=== PATIENT | female | born 1945 | race Caucasian/White ===

== ENCOUNTER 2021-05-04 09:58 | Observation (INO) | payer OTHER ==
[~2021-05-04] VITALS: Ht 160 cm; Wt 80.1 kg
[~2021-05-04 09:58] MED LIST: CELE200 PO; DOXE10; GLIP10 PO; HYDACE5 PO; LEVSOD150; NAPR550 PO; SITA100T2 PO; VERA240ER PO; VERA240ERA
--- NOTE | 2021-05-04 11:23 | NUR ---
Ambulatory in Day Surgery WITH CANE. History, Chart, Medications and Allergies reviewed before start of procedure. Lungs clear T/O to Auscultation. Patient confirms NPO status and agrees with scheduled surgery. Pre-Op teaching done. Pt verbalizes understanding.
--- NOTE | 2021-05-04 12:10 | NUR ---
REPORT RECENTLY GIVEN TO OTHER GALDINO Villafuerte.
--- NOTE | 2021-05-04 15:50 | NUR ---
PATEINMadi TEARFUL, REPORTS CONCERNS RELATED TO SPINAL, THAT SHE CANT FEEL RIGHT LEG. CONCERN THAT HER LEFT SHOULDER PAIN IS DUE TO SPINAL. REASSURED PATIENT THAT SPINAL APPEARS TO BE WEARING OFF. PATINET ABLE TO WIGGLE TOES BILATERALLY AND REPORTS SENSATION MID THIGH. PATIENT REPORTS NO REFEIF TO SHOULDER PAIN DESPITE FENT OR TORADOL. AXIOUS, REPATEDLY REPORTING CONCERNS RELATED TO SPINAL. CALLED AND DISCUSSED WITH DR. Rossi. ORDERS FOR LORAZEPAM RECEIVED AND 0.5MG IV GIVEN.
--- NOTE | 2021-05-04 19:10 | NUR ---
SHIFT SUMMARY PT ARRIVED TO ROOM AROUND 1630. ALERT, ORIENTED, PLEASANT. C/O L SHOULDER PAIN. ICE PACK & REPOSITIONING HELPED. SPINAL BEGINNING TO WEAR OFF & PAIN INCREASED BUT IS NOW CONTROLLED. EATING, DRINKING, & VOIDING.
[2021-05-05 03:58] LABS: BASOPHILS ABSOLUTE AUTO 0.04 K/mm3 (0.00-0.23); BASOPHILS PERCENT AUTO 0 % (0-2); EOSINOPHILS ABSOLUTE AUTO 0.04 K/mm3 (0.00-0.68); EOSINOPHILS PERCENT AUTO 0 % (0-6); Hematocrit 36.5 % (33.0-51.0); Hemoglobin 12.3 g/dL (11.5-16.0); IMMATURE GRAN ABSOLUTE AUTO 0.09 K/mm3 (0.00-0.10); IMMATURE GRAN PERCENT AUTO 1 % (0-1); LYMPHOCYTES ABSOLUTE AUTO 1.76 K/mm3 (0.84-5.20); LYMPHOCYTES PERCENT AUTO 12 % (21-46); MONOCYTES ABSOLUTE AUTO 1.76 K/mm3 (0.16-1.47); MONOCYTES PERCENT AUTO 12 % (4-13); Mean Corpuscular HGB 31.9 pg (26.0-34.0); Mean Corpuscular HGB Conc 33.7 g/dL (31.5-36.5); Mean Corpuscular Volume 95 fL (80-100); Mean Platelet Volume 9.9 fL (9.1-12.4); NEUTROPHILS PERCENT AUTO 75 % (41-73); Platelet Count 285 K/mm3 (150-400); RDW Coefficient Variation 12.1 % (11.7-14.2); Red Blood Cell Count 3.85 M/mm3 (3.80-5.20); White Blood Cell Count 15.09 K/mm3 (4.00-11.30)
--- NOTE | 2021-05-05 03:58 | NUR ---
SHIFT SUMMARY POD1 LEFT TKA. PRINEO DERMABOND DRESSING TO KNEE REMAINS CDI. POLAR PACK IN PLACE. TORADOL/TYLENOL/ROXICODONE FOR PAIN MANAGEMENT. PT NEEDS ENCOURAGEMENT AND REASSURANCE WITH MOBILITY. PT UP TO RESTROOM WITH 1 SBA USING GB + WALKER. WBAT. USES CALL LIGHT APPROPRIATELY.
[2021-05-05 04:16] LABS: Anion Gap 6 mmol/L (6-16); Blood Urea Nitrogen 13 mg/dL (8-24); Bun/Creatinine Ratio 20.1 (12.0-20.0); CO2, Blood 29 mmol/L (21-32); Calcium, Blood 8.3 mg/dL (8.5-10.1); Chloride, Blood 102 mmol/L (98-108); Creatinine, Blood 0.65 mg/dL (0.40-1.00); Glomerular Filtration Rate >60 (60-); Glucose, Blood 166 mg/dL (70-99); Magnesium, Blood 1.6 mg/dL (1.6-2.4); Potassium, Blood 3.6 mmol/L (3.5-5.5); Sodium, Blood 137 mmol/L (136-145)
--- NOTE | 2021-05-05 08:24 | NUR ---
A&OX4, OOB TO CHAIR, C/O NAUSEA AND DRY HEAVING, ZOFRAN GIVEN, C/O PAIN ON L KNEE, 1 OXYCODONE GIVEN, DENIES ANY NUMBNESS OR TINGLING, CONT. TO MONITOR FOR ANY CHANGES.
--- NOTE | 2021-05-05 10:16 | NUR ---
Pt. is awak and alert sittingup in a recliner chair. Pt. is unsettled that she is experiencing side affects from her knee relacement sugery. Daughter in present. Listen empathetically. Explore personal julien and belief. Establish rapport. Pt. displays evidence of reduced stress. Prayed with Pt. Pt. and daughter both verbalize gratitude for their spiritual care visit.
--- NOTE | 2021-05-05 13:44 | NUR ---
05/05/21 1344 Deepti Granda VERIFICATIONS: EDIT CHART.
--- NOTE | 2021-05-05 17:00 | NUR ---
SUMMARY PT WAS NAUSEOUS AND DIZZY THIS AM, REPORTS NAUSEA IS BETTER BUT MOSTLY DIZZY, PAIN MEDS SWITCHED TO NORCO, REPORTS PAIN IS "BETTER" UNABLE TO WORK MUCH WITH PHYS TX TODAY, AND CBG'S HAS BEEN IN THE 200'S, HOSPITALIST CONSULT DONE, TOLERATES AMBULATING TO THE BATHROOM FAIRLY WELL WITH ASISST, L KNEE INCISION C/D/I, TOLERATING REGULAR/ADA DIET WELL, NO OTHER CHANGES THIS SHIFT.
--- NOTE | 2021-05-06 05:30 | NUR ---
76 year old Female postop day 2 for lt total knee replacement continues on scheduled toradol & tylenol & has intermittant pain 09/30 after ectivity. Hesitant to take roxicodone 5 mg but took norco 5/325 mg tab x 1 with helpful effect. Dizziness & nausea reported by PT improved. Snack offered with norco 5/325 mg tab. Up with FWW to bathroom.
[2021-05-06] MEDS ORDERED: ASPI81CH PO (12:37)
[2021-05-06] MEDS ORDERED: ACET500 PO (12:37)
[2021-05-06] MEDS ORDERED: SULTRIDS PO (12:38)
[2021-05-06] MEDS ORDERED: Percocet 5-3251 EACH PO (12:38)
--- NOTE | 2021-05-06 15:24 | NUR ---
L LEG SWOLLEN COMPARED TO THE RIGHT, HOT TO THE TOUCH, AND RED. DR. FOLEY NOTIFIED.
[2021-05-06 15:36] LABS: BASOPHILS ABSOLUTE AUTO 0.05 K/mm3 (0.00-0.23); BASOPHILS PERCENT AUTO 0 % (0-2); EOSINOPHILS ABSOLUTE AUTO 0.18 K/mm3 (0.00-0.68); EOSINOPHILS PERCENT AUTO 1 % (0-6); Hematocrit 34.7 % (33.0-51.0); Hemoglobin 11.7 g/dL (11.5-16.0); IMMATURE GRAN ABSOLUTE AUTO 0.07 K/mm3 (0.00-0.10); IMMATURE GRAN PERCENT AUTO 0 % (0-1); LYMPHOCYTES ABSOLUTE AUTO 2.35 K/mm3 (0.84-5.20); LYMPHOCYTES PERCENT AUTO 14 % (21-46); MONOCYTES ABSOLUTE AUTO 2.11 K/mm3 (0.16-1.47); MONOCYTES PERCENT AUTO 13 % (4-13); Mean Corpuscular HGB Conc 33.7 g/dL (31.5-36.5); Mean Corpuscular Volume 95 fL (80-100); Mean Platelet Volume 10.1 fL (9.1-12.4); NEUTROPHILS ABSOLUTE AUTO 12.05 K/mm3 (1.96-9.15); NEUTROPHILS PERCENT AUTO 72 % (41-73); Platelet Count 282 K/mm3 (150-400); RDW Coefficient Variation 12.1 % (11.7-14.2); RDW Standard Deviation 42.1 fL (35.1-46.3); Red Blood Cell Count 3.66 M/mm3 (3.80-5.20); White Blood Cell Count 16.81 K/mm3 (4.00-11.30)
--- NOTE | 2021-05-06 19:08 | NUR ---
SHIFT SUMMARY PT POD #2 FOR L KNEE ARTHROPLASTY. PT'S L LEG IS VERY RED AND SWOLLEN COMPARED TO THE R. PT ALSO C/O INCREASED PAIN. TREATED PER EMR. PT ADMITTED FOR ANOTHER NIGHT TO RECEIVED IV ANTIBIOTICS. BLOOD CULTURES DRAWN. PT UP WITH A 1 ASSIST WITH FWW/GB. VSS. WILL REPORT TO GILA AHMADI.
--- NOTE | 2021-05-07 04:32 | NUR ---
JIG BORE TOOL MAKER SUMMARY PT STILL WITH SOME SWELLING/REDNESS TO L KNEE, HOWEVER PT STATES IT APPEARS IMPROVED COMPARED TO EARLIER IN THE DAY. PAIN MANAGED WITH SCHEDULED TORADOL/TYLENOL WELL NORCO PER EMAR. PT DID COMPLAIN OF SOME DIZZINESS AFTER AMBULATING FROM CHAIR TO BED, DENIES NAUSEA. HAS SLEPT MOST OF SHIFT. PT EAGER TO GO HOME. WILL CONTINUE TO MONITOR.
[2021-05-07 10:03] LABS: BASOPHILS ABSOLUTE AUTO 0.05 K/mm3 (0.00-0.23); BASOPHILS PERCENT AUTO 0 % (0-2); EOSINOPHILS ABSOLUTE AUTO 0.36 K/mm3 (0.00-0.68); EOSINOPHILS PERCENT AUTO 2 % (0-6); Hematocrit 34.6 % (33.0-51.0); Hemoglobin 11.5 g/dL (11.5-16.0); IMMATURE GRAN ABSOLUTE AUTO 0.07 K/mm3 (0.00-0.10); IMMATURE GRAN PERCENT AUTO 1 % (0-1); LYMPHOCYTES ABSOLUTE AUTO 2.04 K/mm3 (0.84-5.20); LYMPHOCYTES PERCENT AUTO 14 % (21-46); MONOCYTES ABSOLUTE AUTO 1.46 K/mm3 (0.16-1.47); MONOCYTES PERCENT AUTO 10 % (4-13); Mean Corpuscular HGB 31.8 pg (26.0-34.0); Mean Corpuscular HGB Conc 33.2 g/dL (31.5-36.5); Mean Corpuscular Volume 96 fL (80-100); Mean Platelet Volume 10.5 fL (9.1-12.4); NEUTROPHILS ABSOLUTE AUTO 10.77 K/mm3 (1.96-9.15); NEUTROPHILS PERCENT AUTO 73 % (41-73); Platelet Count 275 K/mm3 (150-400); RDW Coefficient Variation 12.3 % (11.7-14.2); RDW Standard Deviation 42.8 fL (35.1-46.3); Red Blood Cell Count 3.62 M/mm3 (3.80-5.20); White Blood Cell Count 14.75 K/mm3 (4.00-11.30)
--- NOTE | 2021-05-07 14:32 | NUR ---
DISCHARGE PT [id number], DISCHARGE INSTRUCTIONS GONE OVER WITH PATIENT, DAUGHTER, AND SPOUSE. DECLINED FURTHER QUESTIONS. EXTRA DRESSINGS SENT WITH PATIENT. DRESSING REMAINS CDI. PT MEDICATED FOR PAIN PRIOR TO DISCHARGE, PRESCRIPTIONS SENT WITH PATIENT. SHUBHAM KHRIS AND ALL BELONGINGS SENT WITH PATIENT. PATIENT PLANS TO FOLLOW UP WITH HER THERAPY APPOINTMENT TOMORROW.
== END 2021-05-07 14:33 | disposition home or self-care (01) ==
LOC: ORSCMMR 09:58 → SURS 09:58 → ORSCMMR 10:00 → SURS 10:01 → ORD 14:00 → ORSCMMR 14:00 → SURS 16:31 → ORSCMMR 05-06 16:30 → SURS 05-07 14:33
PROVIDERS: Internal Medicine; ADMIT Orthopaedic Surgery
PROC: 8E0YXBZ Computer Assisted Procedure of Lower Extremity (ICD-10-PCS; 2021-05-04)
PROC: 0SRD06Z Replacement of Left Knee Joint with Oxidized Zirconium on Polyethylene Synthetic Substitute, Open Approach (ICD-10-PCS; principal; 2021-05-04 14:00)
DX: M17.12 Unilateral primary osteoarthritis, left knee (principal); E11.9 Type 2 diabetes mellitus without complications; I10 Essential (primary) hypertension; E66.9 Obesity, unspecified; E88.81 Metabolic syndrome and other insulin resistance; Z79.84 Long term (current) use of oral hypoglycemic drugs
CPT/HCPCS: 36415; 73560-LT; 80048; 82947; 83735; 85025; 87040; 90686; 97110; 97110-CQ; 97116; 97116-CQ; 97162; 97530; 97530-CQ; A9270; C1776; J0171; J0690; J0696; J0735; J1170; J1885; J2060; J2370; J2405; J2704; J2795; J3010; J3370; J7050; J7120

== ENCOUNTER 2021-06-28 16:13 | Emergency (ER) | payer OTHER ==
[~2021-06-28] VITALS: Ht 160 cm; Wt 81.7 kg
[~2021-06-28 16:13] MED LIST changes: +ACET500 PO; +ASPI81CH PO; +Percocet 5-3251 EACH PO; +SULTRIDS PO
[2021-06-28 16:41] LABS: BASOPHILS ABSOLUTE AUTO 0.05 K/mm3 (0.00-0.23); BASOPHILS PERCENT AUTO 0 % (0-2); EOSINOPHILS PERCENT AUTO 1 % (0-6); Hemoglobin 14.4 g/dL (11.5-16.0); IMMATURE GRAN ABSOLUTE AUTO 0.06 K/mm3 (0.00-0.10); IMMATURE GRAN PERCENT AUTO 0 % (0-1); LYMPHOCYTES ABSOLUTE AUTO 3.02 K/mm3 (0.84-5.20); LYMPHOCYTES PERCENT AUTO 22 % (21-46); MONOCYTES ABSOLUTE AUTO 1.03 K/mm3 (0.16-1.47); MONOCYTES PERCENT AUTO 8 % (4-13); Mean Corpuscular HGB 31.5 pg (26.0-34.0); Mean Corpuscular HGB Conc 33.5 g/dL (31.5-36.5); Mean Corpuscular Volume 94 fL (80-100); Mean Platelet Volume 9.5 fL (9.1-12.4); NEUTROPHILS ABSOLUTE AUTO 9.28 K/mm3 (1.96-9.15); NEUTROPHILS PERCENT AUTO 69 % (41-73); Platelet Count 391 K/mm3 (150-400); RDW Standard Deviation 41.4 fL (35.1-46.3); Red Blood Cell Count 4.57 M/mm3 (3.80-5.20); White Blood Cell Count 13.54 K/mm3 (4.00-11.30)
[2021-06-28 17:01] LABS: Alanine Aminotransfer (ALT/SGP 31 U/L (12-78); Albumin, Blood 4.3 g/dL (3.4-5.0); Albumin/Globulin Ratio 1.1 (0.8-1.8); Alk Phos 98 U/L (50-136); Anion Gap 6 mmol/L (6-16); Aspartate Aminotrans (AST/SGOT 18 U/L (12-37); Bilirubin, Total 0.5 mg/dL (0.1-1.0); Blood Urea Nitrogen 10 mg/dL (8-24); Bun/Creatinine Ratio 19.5 (12.0-20.0); CO2, Blood 26 mmol/L (21-32); Calcium, Blood 9.7 mg/dL (8.5-10.1); Chloride, Blood 106 mmol/L (98-108); Creatinine, Blood 0.51 mg/dL (0.40-1.00); Glomerular Filtration Rate >60 (60-); Glucose, Blood 138 mg/dL (70-99); Potassium, Blood 3.2 mmol/L (3.5-5.5); Sodium, Blood 138 mmol/L (136-145); Total Protein, Blood 8.3 g/dL (6.4-8.2)
[2021-06-28 18:31] LABS: Influenza A, PCR NEGATIVE (NEGATIVE); Influenza B, PCR NEGATIVE (NEGATIVE); Resp Syncytial Virus, PCR NEGATIVE (NEGATIVE); SARS-Cov-2 (COVID-19) PCR, MMC NEGATIVE (NEGATIVE)
[2021-06-28 19:38] LABS: Source, Urine Clean Catch
[2021-06-28 19:51] LABS: Appearance, Urine Clear (Clear); Bilirubin, Urine Neg (Neg); Blood, Urine 1+ (Neg); Color, Urine Yellow (P-Yellow); Glucose Qualitative, Urine Neg (Neg); Ketones, Urine 3+ (Neg); Leukocyte Esterase, Urine Neg (Neg); Nitrite, Urine Neg (Neg); Protein, Urine 1+ (Neg); Specific Gravity, Urine 1.025 (1.003-1.022); Urobilinogen, Urine NORM (Normal)
[2021-06-28 20:07] LABS: Red Blood Cells, Urine Rare /hpf (0-2); Squamous Epithelial Cells Rare /hpf (Few); White Blood Cells, Urine Rare /hpf (0-5)
[2021-06-28 20:09] LABS: Bacteria Mod /hpf
== END 2021-06-28 20:55 | disposition home or self-care (01) ==
LOC: ER 16:13
PROVIDERS: Emergency Medicine
DX: R51.9 Headache, unspecified (principal); I10 Essential (primary) hypertension; E03.9 Hypothyroidism, unspecified; Z88.8 Allergy status to other drugs, medicaments and biological substances; Z88.1 Allergy status to other antibiotic agents; Z79.82 Long term (current) use of aspirin; Z79.899 Other long term (current) drug therapy; Z20.822 Contact with and (suspected) exposure to COVID-19
CPT/HCPCS: 0241U; 36415; 70450; 71045; 80053; 81001; 84484; 85025; 93005; 93010; A9270; J1885; J2405; J3010; J7030

== ENCOUNTER → 2024-11-05 | Outpatient (CLI) | payer OTHER ==
[2024-11-07 08:56] LABS: Stool Occult Bld Immuno 1 Positive (NEGATIVE)
== END ==
LOC: LAB 17:30 → LAB SHORT 17:30
PROVIDERS: Nurse Practitioner Family
DX: E11.65 Type 2 diabetes mellitus with hyperglycemia (principal); I10 Essential (primary) hypertension; R53.82 Chronic fatigue, unspecified; Z12.11 Encounter for screening for malignant neoplasm of colon
CPT/HCPCS: G0328

== ENCOUNTER → 2024-11-06 | Outpatient (CLI) | payer OTHER | LOC: LAB 08:45 → LAB SHORT 08:45 | PROVIDERS: Nurse Practitioner Family | DX: E11.65 Type 2 diabetes mellitus with hyperglycemia (principal); R53.82 Chronic fatigue, unspecified; I10 Essential (primary) hypertension; Z12.11 Encounter for screening for malignant neoplasm of colon | CPT/HCPCS: 83540 ==